=== PATIENT | male | born 1950 | race Caucasian/White ===

== ENCOUNTER → 2018-03-07 | Outpatient (CLI) | payer OTHER ==
[~2018-03-07] MED LIST: CIPROFLOXACIN500 M3 PO; PHENERGAN 25 MG25 M1 PO; UNKNOWN MEDICATIONS
[2018-03-07 08:01] LABS: POTASSIUM 3.7 mmol/L (3.5-5.1)
== END ==
LOC: M.LAB 04:21
PROVIDERS: Anesthesiology
DX: Z01.812 Encounter for preprocedural laboratory examination (principal); E11.9 Type 2 diabetes mellitus without complications